=== PATIENT | female | born 1990 | race Caucasian/White ===

== ENCOUNTER 2017-02-16 21:21 | Emergency (ER) | payer OTHER | END 2017-02-16 23:00 | disposition home or self-care (01) | LOC: ER 21:21 | DX: N39.0 Urinary tract infection, site not specified (principal); E03.9 Hypothyroidism, unspecified; E11.9 Type 2 diabetes mellitus without complications; Z79.84 Long term (current) use of oral hypoglycemic drugs | CPT/HCPCS: 36415; 96365; 96375; J0696; J1885 ==